=== PATIENT | male | born 2000 | race African-American/Black ===

== ENCOUNTER 2021-03-14 00:25 | Emergency (ER) | payer SELFPAY ==
[~2021-03-14] VITALS: Ht 170.2 cm; Wt 172.4 kg
[2021-03-14 00:52] LABS: BASOPHILS # (AUTO) 0.1 10^3/uL (0.0-0.1); BASOPHILS % (AUTO) 1 % (0-10); EOSINOPHILS # (AUTO) 0.4 10^3/uL (0.0-0.3); EOSINOPHILS % (AUTO) 3 % (0-10); HEMATOCRIT 45 % (40-54); HEMOGLOBIN 15.7 g/dL (13.3-17.7); LYMPHOCYTES # (AUTO) 2.7 10^3/uL (1.0-4.0); LYMPHOCYTES % (AUTO) 22 % (12-44); MEAN CORPUSCULAR HEMOGLOBIN 32 pg (25-34); MEAN CORPUSCULAR HGB CONC 35 g/dL (32-36); MEAN CORPUSCULAR VOLUME 92 fL (80-99); MEAN PLATELET VOLUME 9.1 fL (9.0-12.2); MONOCYTES # (AUTO) 0.8 10^3/uL (0.0-1.0); MONOCYTES % (AUTO) 6 % (0-12); NEUTROPHILS # (AUTO) 8.7 10^3/uL (1.8-7.8); NEUTROPHILS % (AUTO) 68 % (42-75); PLATELET COUNT 381 10^3/uL (130-400); WHITE BLOOD COUNT 12.7 10^3/uL (4.3-11.0)
[2021-03-14 01:01] LABS: ALBUMIN 3.4 GM/DL (3.2-4.5)
[2021-03-14 01:02] LABS: CHLORIDE 102 MMOL/L (98-107); POTASSIUM 4.4 MMOL/L (3.6-5.0); SODIUM 139 MMOL/L (135-145)
[2021-03-14 01:03] LABS: AMYLASE 97 U/L (25-125); CALCIUM 9.1 MG/DL (8.5-10.1)
[2021-03-14 01:04] LABS: GLUCOSE 164 MG/DL (70-105); TOTAL PROTEIN 6.9 GM/DL (6.4-8.2)
[2021-03-14 01:05] LABS: CARBON DIOXIDE 26 MMOL/L (21-32)
[2021-03-14 01:06] LABS: BILIRUBIN,TOTAL 0.2 MG/DL (0.1-1.0)
[2021-03-14 01:08] LABS: ALKALINE PHOSPHATASE 121 U/L (40-136); CREATININE SERUM 2.99 MG/DL (0.60-1.30); GFR ESTIMATED 33
[2021-03-14 01:09] LABS: BUN/CREATININE RATIO 7
[2021-03-14 01:11] LABS: ALANINE AMINOTRANSFERASE 23 U/L (0-55)
--- NOTE | 2021-03-14 01:29 | ED GI ---
General Chief Complaint: Rect Problems Stated Complaint: BLACK/BLOODY STOOL / RECTAL BLEEDING Nursing Triage Note: AMBULATES TO ROOM #5 VIA POV W/CO RECTAL BLEEDING. PT REPORTS HE BEGAN TO EXPERIENCE BLEEDING AFTER PASSING A BOWEL MOVEMENT THAT BEGAN LAST SUNDAY OR SUNDAY (03/09/21-03/10/21). 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 PT STATES, " IT WAS RUNNING DOWN MY LEG." Sepsis Screen: No Definite Risk History of Present Illness Date Seen by Provider: Mar 14, 2021 Time Seen by Provider: 00:37 Initial Comments PT ARRIVES VIA POV C/O RECTAL BLEEDING SINCE LAST Sunday03/09/21 STATES BLEEDING INTIALLY WAS WITH A BOWEL MOVEMENT, AND HAS CONTINUED TO HAVE BRIGHT RED BLEEDING WITH BM'S TODAY, HE HAS HAD "CONTINUOUS BLEEDING WITH BLOOD RUNNING DOWN MY LEGS ALL DAY" SINCE 1600 TODAY LAST BM WAS 3-4 HOURS AGO, HAD FORMED STOOL WITH BRIGHT RED BLOOD. DENIES CONSTIPATION OR DIARRHEA DENIES RECTAL PAIN C/O EPIGASTRIC ABDOMINAL PAIN FOR THE LAST COUPLE OF DAYS + NAUSEA, NO VOMITING NO FEVER/SWEATS/CHILLS PT HAS CONTINUED TO EAT AND DRINK USUAL PT WORKS AT [employer] AND STATES THAT NEARLY ALL OF HIS MEALS ARE FROM [employer]. STATES HE HAD "FOOD POISONING" LAST WEEKEND--SEEN AT [facility] FOR THAT PROBLEM, NO TESTS DONE. IS NOT TAKING ANY MEDICATIONS FOR IT. DENIES ANY PRIOR HISTORY OF RECTAL/GI BLEEDING OR GI/ABDOMINAL PROBLEMS OR HISTORY OF ABDOMINAL PAIN OTHERWISE PT ADMITS TO RECTAL INTERCOURSE, BUT STATES HE HAS NOT HAD RECTAL INTERCOURSE OR PUT ANYTHING IN HIS RECTUM FOR THE LAST 3 MONTHS PT STATES HE IS A BIOLOGICAL MALE PT STATES HE "JUST MOVED HERE FROM [place]" --APPROXIMATELY 6 MONTHS AGO HAD BEEN GOING TO [facility] IN [place], BUT HAD NOT BEEN THERE FOR A LONG TIME STATES HE WENT TO [facility] FOR THE FIRST TIME LAST WEEK PT STATES HE IS DIABETIC AND IS SUPPOSED TO BE ON INSULIN AND PILLS, BUT HAS NOT TAKEN ANY MEDICATIONS SINCE AT LEAST OCTOBER PT DOES NOT OWN A GLUCOMETER OR CHECK BLOOD SUGARS, AND DOES NOT FOLLOW ANY DIABETIC DIET PT HAS NO IDEA WHAT HIS BLOOD PRESSURE NORMALLY RUNS, AND CLAIMS HE HAS NOT BEEN DX WITH HTN PT DID RECEIVE BOTH MODERNA VACCINES IN DECEMBER OF THIS YEAR PCP: [facility] Allergies and Home Medications Allergies Coded Allergies: No Known Drug Allergies (Unverified , 03/14/21) Home Medications Pantoprazole Sodium 40 Mg Tablet.dr, 40 MG PO DAILY Prescribed by: CLARY RICKS on 03/14/21 0222 Patient Home Medication List Home Medication List Reviewed: Yes Review of Systems Review of Systems Constitutional: no symptoms reported; No chills, No diaphoresis, No dizziness, No fever Respiratory: No Symptoms Reported Cardiovascular: No Symptoms Reported Gastrointestinal: See HPI, Abdominal Pain; Denies Constipated, Denies Diarrhea; Nausea; Denies Poor Appetite; Rectal Bleeding; Denies Vomiting Genitourinary: No Symptoms Reported, Other (DENIES ANY SORES IN GENITAL AREA OR BLEEDING FROM PENIS OR WITH URINATION) Musculoskeletal: no symptoms reported Skin: no symptoms reported Psychiatric/Neurological: No Symptoms Reported Endocrine: No Symptoms Reported Hematologic/Lymphatic: No Symptoms Reported Past Avyklri-Jlctwt-Guebwo Hx Past Med/Social Hx: Reviewed and Corrections made Patient Social History Alcohol Use: Occasionally Uses Number of Drinks Today: 0 Drug of Choice: UDS + FOR THC 03/14/21 Smoking Status: Current Everyday Smoker Type Used: Electronic/Vapor 2nd Hand Smoke Exposure: Yes Recent Infectious Disease Expo: No Recent Hopitalizations: No Substance type: Marijuana Seasonal Allergies Seasonal Allergies: No Past Medical History Surgeries: Yes (UMBILICAL HERNIA REPAIR) Abdominal, Tonsillectomy Respiratory: No Cardiac: Yes Hypertension Neurological: No Genitourinary: No Gastrointestinal: No Musculoskeletal: No Endocrine: Yes (MORBID OBESITY) Diabetes, Insulin dep HEENT: No Cancer: No Psychosocial: No Integumentary: No Blood Disorders: No Physical Exam Vital Signs Vital Signs - First Documented 03/14/21 00:35 Temp 36.3 Pulse 97 Resp 18 B/P (MAP) 175/122 (139) Pulse Ox 98 O2 Delivery Room Air Capillary Refill : Less Than 3 Seconds Height/Weight/BMI Height: '" Weight: lbs. oz. kg; 59.00 BMI Method: General Appearance: WD/WN, no apparent distress, obese (MORBIDLY OBESE), other (MOVES WITHOUT DIFFICULTY; DRESSED IN PINK TOP AND CARRYING A PURSE, HAIR CROPPED SHORT AND DYED BRIGHT ORANGE. ) HEENT: No pale conjunctivae (R), No pale conjunctivae (L) Neck: normal inspection Respiratory: normal breath sounds, no respiratory distress, no accessory muscle use Cardiovascular: regular rate, rhythm, no murmur Gastrointestinal: soft, tenderness (MILD DIFFUSE UPPER ABDOMINAL TENDERNESS, BUT IS MOST TENDER IN EPIGASTRIC AREA. ) Rectal: normal exam, normal rectal tone, heme negative stool; No black stool, No hemorrhoids, No mass, No tenderness; other (NO FISSURE OR HEMORRHOIDS NOTED. NON-TENDER. NO BLOOD ON LEGS OR BUTTOCKS OR PERINEUM. NO BLOOD NOTED ANYWHERE. NO SORES/WOUNDS, ETC ANYWHERE . NO BLOOD ON CLOTHING OR UNDERWEAR. ) Extremities: normal inspection, normal capillary refill Back: no CVA tenderness Neurologic/Psychiatric: no motor/sensory deficits, alert, normal mood/affect Skin: normal color (PT IS BLACK) Progress/Results/Core Measures Results/Orders Lab Results Laboratory Tests Test 03/14/21 00:45 03/14/21 02:00 Range/Units White Blood Count 12.7 H 4.3-11.0 10^3/uL Red Blood Count 4.94 4.30-5.52 10^6/uL Hemoglobin 15.7 13.3-17.7 g/dL Hematocrit 45 40-54 % Mean Corpuscular Volume 92 80-99 fL Mean Corpuscular Hemoglobin 32 25-34 pg Mean Corpuscular Hemoglobin Concent 35 32-36 g/dL Red Cell Distribution Width 11.8 10.0-14.5 % Platelet Count 381 130-400 10^3/uL Mean Platelet Volume 9.1 9.0-12.2 fL Immature Granulocyte % (Auto) 0 % Neutrophils (%) (Auto) 68 42-75 % Lymphocytes (%) (Auto) 22 12-44 % Monocytes (%) (Auto) 6 0-12 % Eosinophils (%) (Auto) 3 0-10 % Basophils (%) (Auto) 1 0-10 % Neutrophils # (Auto) 8.7 H 1.8-7.8 10^3/uL Lymphocytes # (Auto) 2.7 1.0-4.0 10^3/uL Monocytes # (Auto) 0.8 0.0-1.0 10^3/uL Eosinophils # (Auto) 0.4 H 0.0-0.3 10^3/uL Basophils # (Auto) 0.1 0.0-0.1 10^3/uL Immature Granulocyte # (Auto) 0.0 0.0-0.1 10^3/uL Sodium Level 139 135-145 MMOL/L Potassium Level 4.4 3.6-5.0 MMOL/L Chloride Level 102 98-107 MMOL/L Carbon Dioxide Level 26 21-32 MMOL/L Anion Gap 11 5-14 MMOL/L Blood Urea Nitrogen 20 H 7-18 MG/DL Creatinine 2.99 H 0.60-1.30 MG/DL Estimat Glomerular Filtration Rate 33 BUN/Creatinine Ratio 7 Glucose Level 164 H 70-105 MG/DL Calcium Level 9.1 8.5-10.1 MG/DL Corrected Calcium 9.6 8.5-10.1 MG/DL Total Bilirubin 0.2 0.1-1.0 MG/DL Aspartate Amino Transf (AST/SGOT) 16 5-34 U/L Alanine Aminotransferase (ALT/SGPT) 23 0-55 U/L Alkaline Phosphatase 121 40-136 U/L Total Protein 6.9 6.4-8.2 GM/DL Albumin 3.4 3.2-4.5 GM/DL Amylase Level 97 25-125 U/L Serum Alcohol < 10 <10 MG/DL Urine Color YELLOW Urine Clarity CLEAR Urine pH 7.5 5-9 Urine Specific [place] 1.020 1.016-1.022 Urine Protein 3+ H NEGATIVE Urine Glucose (UA) NEGATIVE NEGATIVE Urine Ketones NEGATIVE NEGATIVE Urine Nitrite NEGATIVE NEGATIVE Urine Bilirubin NEGATIVE NEGATIVE Urine Urobilinogen 0.2 < = 1.0 MG/DL Urine Leukocyte Esterase TRACE H NEGATIVE Urine RBC (Auto) 2+ H NEGATIVE Urine RBC 5-10 H /HPF Urine WBC RARE /HPF Urine Squamous Epithelial Cells 0-2 /HPF Urine Crystals NONE /LPF Urine Bacteria NEGATIVE /HPF Urine Casts NONE /LPF Urine Mucus SMALL H /LPF Urine Culture Indicated NO Urine Opiates Screen NEGATIVE NEGATIVE Urine Oxycodone Screen NEGATIVE NEGATIVE Urine Methadone Screen NEGATIVE NEGATIVE Urine Propoxyphene Screen NEGATIVE NEGATIVE Urine Barbiturates Screen NEGATIVE NEGATIVE Ur Tricyclic Antidepressants Screen NEGATIVE NEGATIVE Urine Phencyclidine Screen NEGATIVE NEGATIVE Urine Amphetamines Screen NEGATIVE NEGATIVE Urine Methamphetamines Screen NEGATIVE NEGATIVE Urine Benzodiazepines Screen NEGATIVE NEGATIVE Urine Cocaine Screen NEGATIVE NEGATIVE Urine Cannabinoids Screen POSITIVE H NEGATIVE My Orders Orders - CLARY RICKS DO Ed Iv/Invasive Line Start (03/14/21 00:40) Monitor-Rhythm Ecg Trace Only (03/14/21 00:40) Alcohol (03/14/21 00:40) Amylase (03/14/21 00:40) Cbc With Automated Diff (03/14/21 00:40) Comprehensive Metabolic Panel (03/14/21 00:40) Drug Screen Stat (Urine) (03/14/21 00:40) Ua Culture If Indicated (03/14/21 00:40) Hydralazine Injection (Apresoline Inject (03/14/21 01:30) Ed Iv/Invasive Line Start (03/14/21 01:18) Ns Iv 1000 Ml (Sodium Chloride 0.9%) (03/14/21 01:30) Ct Abdomen/Pelvis Wo (03/14/21 01:18) Pantoprazole Injection (Protonix Injecti (03/14/21 02:00) Medications Given in ED Current Medications Medications Dose Ordered Sig/Nancy Route Start Time Stop Time Status Last Admin Dose Admin Hydralazine HCl 10 mg ONCE ONCE IV 03/14/21 01:30 03/14/21 01:31 DC 03/14/21 02:06 10 MG Pantoprazole 40 mg ONCE ONCE IV 03/14/21 02:00 03/14/21 02:01 DC 03/14/21 02:06 40 MG Vital Signs/I&O 03/14/21 00:35 Temp 36.3 Pulse 97 Resp 18 B/P (MAP) 175/122 (139) Pulse Ox 98 O2 Delivery Room Air Blood Pressure Mean: 139 Progress Progress Note : Progress Note GIVEN PROTONIX AND HYDRALAZINE DISCUSSED IMPORTANCE OF FOLLOW UP FOR FURTHER CARE, IMPORTANCE OF TAKING MEDICATIONS PRESCRIBED, CHECKING BLOOD SUGARS AND FOLLOWING A DIET. NO RECTAL BLEEDING OR COMPLAINTS OF ANY KIND DURING ER STAY Diagnostic Imaging Comments CT ABDOMEN/PELVIS--NORMAL/NO ACUTE PROCESS, PER [facility] VIA FAX AT 0151 Reviewed: Reviewed by Me Departure Impression Primary Impression: SELF REPORTED RECTAL BLEEDING Additional Impressions: Severe uncontrolled hypertension Renal failure Epigastric pain Diabetes mellitus Marijuana use Disposition: HOME, SELF-CARE Condition: Improved Departure-Patient Inst. Referrals: PRINCE TEIXEIRA DO [facility] Patient Instructions: Bloody Stools, Adult (DC), DASH Diet, Diabetes Type 2 (DC), High Blood Pressure in Adults, Kidney Failure (DC), Marijuana Use and Addiction (DC), How to Keep Track of Your Blood Sugar Add. Discharge Instructions: FOLLOW UP WITH [facility] THIS WEEK FOR FURTHER CARE--CALL IN THE MORNING TO SCHEDULE APPOINTMENT FOLLOW UP WITH DR. TEIXEIRA, GENERAL SURGEON, FOR FURTHER EVALUATION OF RECTAL BLEEDING NO MARIJUANA All discharge instructions reviewed with patient and/or family. Voiced understanding. Scripts Pantoprazole Sodium (Protonix) 40 Mg Tablet. 40 MG PO DAILY, #15 TAB Prov: CLARY RICKS DO 03/14/21 CLARY RICKS DO Mar 14, 2021 01:29
[2021-03-14] MEDS ORDERED: NS IV 1000 ML 1,000 ML IV SCH (01:30)
[2021-03-14] MEDS ORDERED: hydrALAZINE (APESOLINE) 20 MG/ML VIAL IV ONE (01:30)
[2021-03-14] MEDS ORDERED: PANTOPRAZOLE 40 MG (PROTONIX) VIAL IV ONE (02:00)
[2021-03-14 02:07] LABS: BILIRUBIN,URINE NEGATIVE (NEGATIVE); CLARITY,URINE CLEAR; COLOR,URINE YELLOW; GLUCOSE, URINE (UA) NEGATIVE (NEGATIVE); KETONES,URINE NEGATIVE (NEGATIVE); LEUKOCYTE ESTERASE ,URINE TRACE (NEGATIVE); NITRITE,URINE NEGATIVE (NEGATIVE); PH,URINE 7.5 (5-9); PROTEIN,URINE 3+ (NEGATIVE)
[2021-03-14 02:14] LABS: BACTERIA,URINE NEGATIVE /HPF; SQUAMOUS EPITHELIAL CELL,UR 0-2 /HPF; WBC,URINE RARE /HPF
[2021-03-14 02:19] LABS: AMPHETAMINE SCREEN, URINE NEGATIVE (NEGATIVE); BARBITURATE SCREEN URINE NEGATIVE (NEGATIVE); BENZODIAZEPINES SCREEN URINE NEGATIVE (NEGATIVE); CANNABINOID SCREEN, URINE POSITIVE (NEGATIVE); COCAINE SCREEN URINE NEGATIVE (NEGATIVE); METHADONE STAT NEGATIVE (NEGATIVE); METHAMPHETAMINE SCREEN URINE S NEGATIVE (NEGATIVE); OPIATE SCREEN URINE NEGATIVE (NEGATIVE); OXYCODONE STAT NEGATIVE (NEGATIVE); PROPOXYPHENE STAT NEGATIVE (NEGATIVE); TRICYCLIC ANTIDEPRESSANTS SCRE NEGATIVE (NEGATIVE)
[2021-03-14] MEDS ORDERED: PANT40TA2 PO (02:22)
[2021-03-14 02:43] VITALS: BP 109/80
--- NOTE | 2021-03-14 06:43 | Diagnostic Imaging Report ---
PROCEDURE: CT abdomen and pelvis without contrast. TECHNIQUE: Multiple contiguous axial images were obtained through the abdomen and pelvis without the use of intravenous contrast. Auto Exposure Controls were utilized during the CT exam to meet ALARA standards for radiation dose reduction. INDICATION: Pain, rectal bleeding. CORRELATION STUDY: None. FINDINGS: LOWER THORAX: Clear. LIVER: Enlarged at 22 cm craniocaudal length. GALLBLADDER: Present and unremarkable. No bile duct dilatation. SPLEEN: Unremarkable. PANCREAS: Unremarkable. ADRENAL GLANDS: Unremarkable. KIDNEYS: Normal configuration. No calcification or obstruction. ABDOMINAL AORTA: Unremarkable, nonaneurysmal. GASTROINTESTINAL TRACT: No evidence for obstruction or inflammation. No abdominal ascites and/or free air. URINARY BLADDER: Unremarkable. REPRODUCTIVE: Unremarkable. OSSEOUS STRUCTURES: No acute abnormality. OTHER: None. IMPRESSION: 1. Negative for acute abnormality of the abdomen or pelvis. 2. Hepatomegaly. Initial report was provided by [facility]. Dictated by: Dictated on workstation # [id number]
== END 2021-03-14 02:45 | disposition home or self-care (01) ==
LOC: ER 00:28
DX: K62.5 Hemorrhage of anus and rectum (principal); I10 Essential (primary) hypertension; E11.22 Type 2 diabetes mellitus with diabetic chronic kidney disease; N18.9 Chronic kidney disease, unspecified; E66.01 Morbid (severe) obesity due to excess calories; R10.13 Epigastric pain; F12.90 Cannabis use, unspecified, uncomplicated; F17.290 Nicotine dependence, other tobacco product, uncomplicated; Z68.43 Body mass index [BMI] 50.0-59.9, adult
CPT/HCPCS: 74176; 80053; 80306; 81000; 82150; 85025; 93041; 99284; G0480; 36415; 80320